=== PATIENT | male | born 1975 | race Hispanic/Latino ===

== ENCOUNTER 2024-02-11 11:42 | Emergency (ER) | payer MEDICARE ==
[~2024-02-11] VITALS: Ht 185.4 cm; Wt 108.9 kg
[2024-02-11 13:00] LABS: APPEARANCE,URINE CLEAR (CLEAR); BILIRUBIN,URINE NEGATIVE (NEGATIVE); COLOR,URINE LIGHT-YELLOW (YELLOW); GLUCOSE, URINE (UA) NEGATIVE (NEGATIVE); KETONES,URINE NEGATIVE (NEGATIVE); LEUKOCYTE ESTERASE ,URINE 250 Leu/uL (NEGATIVE); NITRATE,URINE NEGATIVE (NEGATIVE); OCCULT BLOOD,URINE SMALL (NEGATIVE); PH,URINE 6.5 (5.0-8.0); PROTEIN,URINE NEGATIVE (NEGATIVE); UROBILINOGEN,URINE 0.2 mg/dL (0.2-1.0)
[2024-02-11 13:13] LABS: ADD UA MICROSCOPIC YES
[2024-02-11 13:14] LABS: SQUAMOUS EPITHELIAL CELL,UR RARE /HPF (0-2)
[2024-02-11 13:29] LABS: BASOPHILS % (AUTO) 0.8 % (0.0-5.0); EOSINOPHILS # (AUTO) 0.32 K/uL (0.00-0.70); EOSINOPHILS % (AUTO) 2.6 % (0.0-8.0); HEMATOCRIT 40.3 % (42-54); IMMATURE GRANULOCYTE ABSOLUTE 0.07 K/uL (0-1); LYMPHOCYTES # (AUTO) 3.4 K/uL (1.0-4.8); LYMPHOCYTES % (AUTO) 27.4 % (21.0-51.0); MEAN CORPUSCULAR HEMOGLOBIN 30.4 pg (27.0-33.0); MEAN CORPUSCULAR HGB CONC 34.2 g/dL (32.0-36.0); MEAN CORPUSCULAR VOLUME 88.8 fL (79-99); MONOCYTES # (AUTO) 0.9 K/uL (0.1-1.0); NEUTROPHILS # (AUTO) 7.5 K/uL (1.8-7.7); NEUTROPHILS % (AUTO) 61.6 % (40.0-77.0); PLATELET COUNT (AUTO) 266 K/uL (130-400); RED BLOOD CELL COUNT(AUTO) 4.54 MIL/uL (4.50-6.20); RED CELL DISTRIBUTION WIDTH 12.9 % (11.0-15.5); WHITE BLOOD COUNT (AUTO) 12.2 K/uL (4.8-10.8)
[2024-02-11 13:45] LABS: ALBUMIN 3.3 g/dL (3.5-5.0); BILIRUBIN,TOTAL 0.4 mg/dL (0.2-1.0); CREATININE 0.8 mg/dL (0.5-1.3)
[2024-02-11] MEDS: ONDANSETRON 4MG INJ IVP ONE (14:03)
[2024-02-11] MEDS: MORPHINE 2 MG SYG IVP ONE (14:03)
[2024-02-11] MEDS ORDERED: DOXY100C61 PO (15:43)
[2024-02-11] MEDS ORDERED: HYDR-4060 PO (15:43)
[2024-02-11] MEDS ORDERED: ONDA-243 PO (15:43)
[2024-02-11] MEDS: LEVOFLOXACIN 500 MG TABLET ONE (15:45)
[2024-02-11] MEDS: CEFTRIAXONE 1G VIAL ONE (15:46)
[2024-02-11] MEDS: LEVOFLOXACIN 500 MG TABLET PO ONE (15:47)
[2024-02-11] MEDS: 0.9%NACL 1000ML 1,000 ML IV ONE (15:47)
[2024-02-11] MEDS: CEFTRIAXONE 1G VIAL IVPB ONE (15:47)
[2024-02-11 16:16] VITALS: BP 120/83; PULSE 73; RESP 17; O2SAT 98
== END 2024-02-11 16:41 | disposition home or self-care (01) ==
LOC: EDH 11:42
DX: N50.811 Right testicular pain (principal); E11.9 Type 2 diabetes mellitus without complications; E78.00 Pure hypercholesterolemia, unspecified; I10 Essential (primary) hypertension
CPT/HCPCS: 99285; 96365; 96375; 80053; 85025; 87086; 81001; 36415; 76870; J2270; J0696; J2405

== ENCOUNTER 2024-03-04 15:33 | Emergency (ER) | payer MEDICARE ==
[~2024-03-04] VITALS: Ht 185.4 cm; Wt 109.3 kg
[~2024-03-04 15:33] MED LIST: DOXY100C61 PO; HYDR-4060 PO; ONDA-243 PO
[2024-03-04 16:03] LABS: APPEARANCE,URINE CLEAR (CLEAR); BILIRUBIN,URINE NEGATIVE (NEGATIVE); COLOR,URINE LIGHT-YELLOW (YELLOW); GLUCOSE, URINE (UA) NEGATIVE (NEGATIVE); KETONES,URINE NEGATIVE (NEGATIVE); LEUKOCYTE ESTERASE ,URINE NEGATIVE Leu/uL (NEGATIVE); NITRATE,URINE NEGATIVE (NEGATIVE); OCCULT BLOOD,URINE NEGATIVE (NEGATIVE); PH,URINE 5.5 (5.0-8.0); PROTEIN,URINE NEGATIVE (NEGATIVE); UROBILINOGEN,URINE 0.2 mg/dL (0.2-1.0)
[2024-03-04 16:09] LABS: ADD UA MICROSCOPIC NO
[2024-03-04 16:40] LABS: BASOPHILS # (AUTO) 0.12 K/uL (0.00-0.20); BASOPHILS % (AUTO) 1.1 % (0.0-5.0); EOSINOPHILS # (AUTO) 0.27 K/uL (0.00-0.70); EOSINOPHILS % (AUTO) 2.4 % (0.0-8.0); HEMATOCRIT 40.4 % (42-54); IMMATURE GRANULOCYTE ABSOLUTE 0.05 K/uL (0-1); LYMPHOCYTES # (AUTO) 2.9 K/uL (1.0-4.8); LYMPHOCYTES % (AUTO) 25.5 % (21.0-51.0); MEAN CORPUSCULAR HEMOGLOBIN 30.1 pg (27.0-33.0); MEAN CORPUSCULAR HGB CONC 34.4 g/dL (32.0-36.0); MEAN CORPUSCULAR VOLUME 87.4 fL (79-99); MONOCYTES # (AUTO) 0.9 K/uL (0.1-1.0); MONOCYTES % (AUTO) 7.6 % (3.0-13.0); NEUTROPHILS # (AUTO) 7.1 K/uL (1.8-7.7); PLATELET COUNT (AUTO) 254 K/uL (130-400); RED BLOOD CELL COUNT(AUTO) 4.62 MIL/uL (4.50-6.20); RED CELL DISTRIBUTION WIDTH 13.2 % (11.0-15.5); WHITE BLOOD COUNT (AUTO) 11.3 K/uL (4.8-10.8)
[2024-03-04] MEDS: ONDANSETRON 4MG INJ IVP ONE (17:29)
[2024-03-04] MEDS: CEFTRIAXONE 2GM VIAL IVPB ONE (17:29)
[2024-03-04] MEDS: KETOROLAC 15MG/ML VIAL (15MG/ML) IV ONE (17:30)
[2024-03-04] MEDS: MORPHINE 4 MG SYG IVP ONE (17:30)
[2024-03-04] MEDS ORDERED: CIPR-278 PO (18:21)
[2024-03-04] MEDS ORDERED: NAPR-1196 PO (18:21)
[2024-03-04 18:32] VITALS: BP 127/72; PULSE 84; RESP 20; O2SAT 98
== END 2024-03-04 18:43 | disposition home or self-care (01) ==
LOC: EDH 15:33
DX: N45.1 Epididymitis (principal); E11.9 Type 2 diabetes mellitus without complications; E78.00 Pure hypercholesterolemia, unspecified; I10 Essential (primary) hypertension; Z79.899 Other long term (current) drug therapy; Z79.2 Long term (current) use of antibiotics; Z86.73 Personal history of transient ischemic attack (TIA), and cerebral infarction without residual deficits
CPT/HCPCS: 99285; 96365; 96375; 80048; 85025; 81003; 36415; 76870; J0696; J2405; J2270; J1885

== ENCOUNTER → 2024-06-21 | Outpatient (CLI) | payer MEDICARE ==
[~2024-06-21] MED LIST changes: +CIPR-278 PO; +NAPR-1196 PO
== END | disposition home or self-care (01) ==
LOC: RAH 16:21
PROVIDERS: ATTEND Family Medicine
DX: M25.561 Pain in right knee (principal); M25.551 Pain in right hip; M54.50 Low back pain, unspecified
CPT/HCPCS: 72100; 73502; 73562

== ENCOUNTER 2024-07-10 09:47 | Emergency (ER) | payer MEDICARE ==
[~2024-07-10] VITALS: Ht 185.4 cm; Wt 111.1 kg
--- NOTE | 2024-07-10 10:10 | ERN ---
General Chief Complaint: Lower Extremity Pain/Injury Stated Complaint: LEG PAIN Time Seen by MD: 09:54 Source: patient History of Present Illness Initial Comments Patient is a 48-year-old male coming in to be evaluated for lower extremity gluteal pain radiating down both legs. Patient states he fell down 2-3 weeks ago and started having back pain. Fever no chills. Allergies: Coded Allergies: No Known Drug Allergies (Unverified Allergy, Unknown, 02/11/24) Home Meds Active Scripts Naproxen (Naproxen) 250 Mg Tablet, 250 MG PO BID for pain for 7 Days, #14 TAB Prov:ACE IZQUIERDO MD 03/04/24 Ciprofloxacin HCl (Cipro) 500 Mg Tablet, 500 MG PO BID for epididymitis for 7 Days, #14 TAB Prov:ACE IZQUIERDO MD 03/04/24 Ondansetron (Ondansetron Odt) 4 Mg Tab.rapdis, 4 MG PO Q6HPRN PRN for nausea, #16 TAB 0 Refills Prov:DANY SARKAR MD 02/11/24 Hydrocodone/Acetaminophen (Hydrocodon-Acetaminophen 5-325) 5 Mg-325 Mg Tablet, 1 EACH PO Q6H for pain, #16 TAB 0 Refills Prov:DANY SARKAR MD 02/11/24 Doxycycline Monohydrate (Doxycycline Monohydrate) 100 Mg Capsule, 100 MG PO BID, #20 CAP Prov:DANY SARKAR MD 02/11/24 Past Medical History Past Medical History: Diabetes-Type II, High Cholesterol, Hypertension, Stroke Past Surgical History: Other Surgical History Other: HEART CATH ROS Dictation CONSTITUTIONAL: No chills, no fever, no weakness, no diaphoresis, no malaise. HEAD/FACE: No signs of trauma. EENT: No eye pain, no blurred vision, no tearing, no double vision, no ear pain, no ear discharge, no nose pain, no nasal congestion, no throat pain, no throat swelling, no mouth pain. RESPIRATORY: No cough, no orthopnea, no SOB, no stridor, no wheezing. CARDIOVASCULAR: No chest pain, no edema, no palpitations, no syncope. GASTROINTESTINAL/ABDOMINAL: No abdominal pain, no constipation, no diarrhea, no nausea, no vomiting. GENITOURINARY: No abnormal discharge, no dysuria, no frequent urination, no h ematuria. No complaints of pain in the genitals. MUSCULOSKELETAL: back pain, no gout, no joint pain, no joint swelling, muscle pain, muscle stiffness, no neck pain. INTEGUMENTARY: No change in color, no change in hair/nails, no dryness, no lesion, no lumps, no rash. NEUROLOGICAL/PSYCH: No anxiety, not depressed, no emotional problem, no headache, no numbness, no pre-existing deficit, no history of seizures, no tremors, no weakness. HEMATOLOGIC/LYMPHATIC: Not anemic, no history of blood clots, no apparent bleeding, no bruising, glands not swollen. All Systems Negative, Except as Noted. Physical Exam Physical Exam Dictation VITAL SIGNS: Reviewed. GENERAL APPEARANCE: Alert, oriented x3, no acute distress, obese. HEAD AND FACE: Non-traumatic. EYES: PERRL, pink conjunctivas, eyelid no trauma, anterior chamber clear. EARS: Pinnas intact and no signs of trauma or erythema. Ear canals clear and no discharge. TMs no erythema. NOSE: No discharge, no bleeding. OROPHARYNX: Mouth normal, teeth no caries, tongue pink. Pharynx clear, no erythema. Tonsils no exudates, no abscesses noted. Mucous membrane moist. NECK: Supple, non-tender, no thyromegaly, no masses, no JVD, no bruits. BREAST: Deferred. CHEST: No tenderness, no crepitus, no paradoxical movement, no retractions. LUNGS: Clear, well-ventilated, symmetric, no rales, no wheezing, no rhonchi, no stridor, good breath sounds bilaterally. HEART: Regular rate, regular rhythm, no murmur, no gallops. VASCULAR: No peripheral edema. ABDOMEN: Soft, positive bowel sounds, nondistended, no guarding, nontender, no rebound, no masses no hepatomegaly, no splenomegaly, no Bazan's sign, no hernias. RECTAL: Deferred. GENITAL: Deferred. NEUROLOGICAL: Normal speech, gross motor function intact, gross sensory function intact. 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 EXTREMITIES: Nontender, full range of motion. SKIN: Color pink, dry, no turgor, no rash, no lacerations, no abrasions, no contusions. LYMPHATICS: Deferred. Results Laboratory and Microbiology Lab and Micro Result Laboratory Tests Test 07/10/24 10:06 White Blood Count 7.6 K/uL (4.8-10.8) Red Blood Count 4.45 MIL/uL (4.50-6.20) L Hemoglobin 14.1 g/dL (14.0-18.0) Hematocrit 40.2 % (42-54) L Mean Corpuscular Volume 90.3 fL (79-99) Mean Corpuscular Hemoglobin 31.7 pg (27.0-33.0) Mean Corpuscular Hemoglobin Concent 35.1 g/dL (32.0-36.0) Red Cell Distribution Width 12.9 % (11.0-15.5) Platelet Count 206 K/uL (130-400) Mean Platelet Volume 11.6 fL (7.5-10.5) H Immature Granulocyte % (Auto) 0.4 % (0-1) Neutrophils (%) (Auto) 41.2 % (40.0-77.0) Lymphocytes (%) (Auto) 42.4 % (21.0-51.0) Monocytes (%) (Auto) 9.3 % (3.0-13.0) Eosinophils (%) (Auto) 5.0 % (0.0-8.0) Basophils (%) (Auto) 1.7 % (0.0-5.0) Neutrophils # (Auto) 3.1 K/uL (1.8-7.7) Lymphocytes # (Auto) 3.2 K/uL (1.0-4.8) Monocytes # (Auto) 0.7 K/uL (0.1-1.0) Eosinophils # (Auto) 0.38 K/uL (0.00-0.70) Basophils # (Auto) 0.13 K/uL (0.00-0.20) Absolute Immature Granulocyte (auto 0.03 K/uL (0-1) Nucleated Red Blood Cells 0.0 % (0.0-0.19) Sodium Level 139 mmol/L (136-145) Potassium Level 3.5 mmol/L (3.5-5.1) Chloride Level 103 mmol/L (101-111) Carbon Dioxide Level 25 mmol/L (21-32) Blood Urea Nitrogen 10 mg/dL (7-18) Creatinine 0.9 mg/dL (0.5-1.3) Glomerular Filtration Rate Calc 105 mL/min (>90) Random Glucose 227 mg/dL (70-105) H Total Calcium 8.3 mg/dL (8.5-10.1) L Total Creatine Kinase 229 U/L (21-232) Labs Reviewed?: Yes EKG/XRAY/US/CT/MRI CT Scan Comment [facility] [address] [place] [address] IMAGING REPORT Signed PATIENT: ELINOR BRAGA MR#: [id number] : 1975 SEX: M AGE: 48 LOCATION: [facility] [address] ORDER 100 STATUS: REG REPORT#: [id number] SERVICE 100 REASON: lower extremity pain and weakness ORDERING PHYSICIAN: ALEJANDRA EID MD PROCEDURE: L SPIN WO - CT LUMBAR SPINE W/O CONTRAST CT LUMBAR SPINE WITHOUT CONTRAST INDICATION: Lower extremity pain and weakness TECHNIQUE: Noncontrast helical CT of the lumbar spine obtained at 2 mm slice thickness with reconstructions in the coronal and sagittal planes. CT was performed with one or more of the following dose reduction techniques: Automated exposure control, adjustment of the mA and/or kV according to patient size, or use of iterative reconstruction technique. COMPARISON: None FINDINGS: Normal lordosis is maintained. Extremely shallow lumbar levoscoliosis. Vertebral bodies are normal in height, without evidence for fracture or compression deformity. No evidence for subluxation. No significant disc protrusion/extrusion or moderate or high-grade neuroforaminal narrowing or central canal stenosis. No significant facet disease. Multilevel mild anterior endplate osteophytic spurring. Mild disc height loss at the L5-S1 level. Multilevel mild to moderate bilateral facet disease is most pronounced as moderate bilaterally at the L4-L5 level. The sacroiliac joints appear normal. The paravertebral soft tissues appear normal. IMPRESSION: No significant disc herniation or moderate or high-grade neuroforaminal narrowing or central canal stenosis. DICTATED BY: AGUILAR QUINTEROS MD DATE: 07/10/24 1047 ELECTRONICALLY SIGNED BY: AGUILAR QUINTEROS MD DATE: 07/10/24 1051 MDM MDM: Differential diagnosis: Chronic back pain, sciatica Patient is a 48-year-old gentleman coming in to be evaluated for back pain radiating down both gluteal regions. Patient was told he was sciatica in the past and has been receiving treatment for that. CT did not disclose acute findings laboratory workup negative for acute findings. Patient will be discharged with a diagnosis of sciatica. ED Course Orders Procedure Category Date Status Time Cbc With Differential LAB 07/10/24 Complete 10:04 Basic Metabolic Panel LAB 07/10/24 Complete 10:04 Creatine Kinase, Total LAB 07/10/24 Complete 10:04 Ct Lumbar Spine W/O CT 07/10/24 Resulted Contrast 10:04 Ketorolac PHA 07/10/24 Complete Tromethamine 30mg/Ml 10:30 Triamcinolone Acet PHA 07/10/24 Complete 40mg/Ml 1ml (Kenalog 10:30 Current Medications Medications (Trade) Dose Ordered Sig/Lashae Route PRN Reason Start Time Stop Time Status Last Admin Dose Admin Ketorolac Tromethamine (toRADol) 30 mg ONCE ONCE IM 07/10/24 10:30 07/10/24 10:31 DC Triamcinolone Acetonide (Kenalog 40) 40 mg ONCE ONCE IM 07/10/24 10:30 07/10/24 10:31 DC Vital Signs Date Time Temp Pulse Resp B/P (MAP) Pulse Ox O2 Delivery O2 Flow Rate FiO2 07/10/24 09:54 98.4 83 18 151/97 97 Room Air DX & DISP Disposition: Discharge Departure Impression: Primary Impression: Sciatica Condition: Stable Scripts Prednisone (Prednisone) 5 Mg Tablet 1 TAB PO BID for 7 Days, #14 TAB 0 Refills Prov: ALEJANDRA EID MD 07/10/24 Methocarbamol (Robaxin) 750 Mg Tab 1 TAB PO BID for 7 Days, #14 TAB 0 Refills Prov: ALEJANDRA EID MD 07/10/24 Additional Instructions: FOLLOW-UP WITH PRIMARY CARE PROVIDER IN 1 TO 2 DAYS. TAKE MEDICATIONS DIRECTED HERE IN THE EMERGENCY ROOM. OKAY TO CONTINUE HOME MEDICATIONS UNLESS OTHERWISE DISCUSSED DURING YOUR VISIT IN THE EMERGENCY ROOM TODAY. RETURN TO YOUR NEAREST EMERGENCY ROOM IF SYMPTOMS WORSEN OR IF THERE IS NO IMPROVEMENT. CALL 911 IF YOU NEED IMMEDIATE ASSISTANCE. TAKE TYLENOL [id number] NEEDED AND IF NO CONTRAINDICATIONS ARE PRESENT. INCREASE ORAL HYDRATION. A WOUND CULTURE OR URINE CULTURE WAS ORDERED HERE IN THE EMERGENCY ROOM DEPARTMENT PLEASE FOLLOW-UP WITH PRIMARY CARE PROVIDER AND ADVISE THEM TO GET REPEAT PORTS FROM OUR FACILITY. IF YOU HAD ANY LORI WRAP/SPLINTS THAT WERE APPLIED HERE, PLEASE DO NOT REMOVE THEM UNTIL YOU SEE YOUR PRIMARY CARE OR SPECIALTY. Referrals: Referrals: KANNAN SHANKAR MD (PCP) Time of Disposition: 10:59 ALEJANDRA EID MD Jul 10, 2024 10:10
[2024-07-10 10:31] LABS: BASOPHILS # (AUTO) 0.13 K/uL (0.00-0.20); BASOPHILS % (AUTO) 1.7 % (0.0-5.0); EOSINOPHILS # (AUTO) 0.38 K/uL (0.00-0.70); HEMATOCRIT 40.2 % (42-54); IMMATURE GRANULOCYTE ABSOLUTE 0.03 K/uL (0-1); LYMPHOCYTES # (AUTO) 3.2 K/uL (1.0-4.8); LYMPHOCYTES % (AUTO) 42.4 % (21.0-51.0); MEAN CORPUSCULAR HEMOGLOBIN 31.7 pg (27.0-33.0); MEAN CORPUSCULAR HGB CONC 35.1 g/dL (32.0-36.0); MEAN CORPUSCULAR VOLUME 90.3 fL (79-99); MONOCYTES # (AUTO) 0.7 K/uL (0.1-1.0); MONOCYTES % (AUTO) 9.3 % (3.0-13.0); NEUTROPHILS # (AUTO) 3.1 K/uL (1.8-7.7); NEUTROPHILS % (AUTO) 41.2 % (40.0-77.0); PLATELET COUNT (AUTO) 206 K/uL (130-400); RED BLOOD CELL COUNT(AUTO) 4.45 MIL/uL (4.50-6.20); RED CELL DISTRIBUTION WIDTH 12.9 % (11.0-15.5); WHITE BLOOD COUNT (AUTO) 7.6 K/uL (4.8-10.8)
[2024-07-10 10:38] LABS: CREATININE 0.9 mg/dL (0.5-1.3); POTASSIUM 3.5 mmol/L (3.5-5.1)
--- NOTE | 2024-07-10 10:51 | HMCIMG ---
CT LUMBAR SPINE WITHOUT CONTRAST INDICATION: Lower extremity pain and weakness TECHNIQUE: Noncontrast helical CT of the lumbar spine obtained at 2 mm slice thickness with reconstructions in the coronal and sagittal planes. CT was performed with one or more of the following dose reduction techniques: Automated exposure control, adjustment of the mA and/or kV according to patient size, or use of iterative reconstruction technique. COMPARISON: None FINDINGS: Normal lordosis is maintained. Extremely shallow lumbar levoscoliosis. Vertebral bodies are normal in height, without evidence for fracture or compression deformity. No evidence for subluxation. No significant disc protrusion/extrusion or moderate or high-grade neuroforaminal narrowing or central canal stenosis. No significant facet disease. Multilevel mild anterior endplate osteophytic spurring. Mild disc height loss at the L5-S1 level. Multilevel mild to moderate bilateral facet disease is most pronounced as moderate bilaterally at the L4-L5 level. The sacroiliac joints appear normal. The paravertebral soft tissues appear normal. IMPRESSION: No significant disc herniation or moderate or high-grade neuroforaminal narrowing or central canal stenosis.
[2024-07-10] MEDS: TRIAMCINOLONE ACETONIDE 40 MG/ML 1ML VIAL IM ONE (10:58)
[2024-07-10] MEDS: ketOROlac 30MG VIAL (30MG/ML) IM ONE (10:58)
[2024-07-10] MEDS ORDERED: METH-662 PO (11:00)
[2024-07-10] MEDS ORDERED: PRED5TAB PO (11:00)
[2024-07-10 11:19] VITALS: BP 128/74; PULSE 74; RESP 16; TEMP 97.9; O2SAT 98
== END 2024-07-10 11:21 | disposition home or self-care (01) ==
LOC: EDH 09:47
DX: M54.30 Sciatica, unspecified side (principal); E11.9 Type 2 diabetes mellitus without complications; E78.00 Pure hypercholesterolemia, unspecified; I10 Essential (primary) hypertension; Z79.899 Other long term (current) drug therapy; Z86.73 Personal history of transient ischemic attack (TIA), and cerebral infarction without residual deficits; Z98.890 Other specified postprocedural states
CPT/HCPCS: 99285; 82550; 80048; 85025; 36415; 72131; 96372 ×2; J3301; J1885